=== PATIENT | female | born 1985 | race Caucasian/White ===

== ENCOUNTER 2018-11-04 18:54 | Emergency (ER) | payer OTHER | END 2018-11-04 22:35 | disposition home or self-care (01) | LOC: JERFT 18:54 ==

== ENCOUNTER 2019-08-11 07:23 | Emergency (ER) | payer OTHER ==
[2019-08-11 07:29] VITALS: BP 137/75; PULSE 96; TEMP 98.9; BMI 41.9
[2019-08-11] MEDS ORDERED: IBUPROFEN 600 MG TABLET (FP) PO ONE ×2 (07:41→07:52)
[2019-08-11] MEDS ORDERED: DEXAMETHASONE LIQUID 0.5 MG/5 ML PO ONE (07:41)
[2019-08-11] MEDS ORDERED: DEXAMETHASONE SOD PHOSPHATE 10 MG/1 ML VIAL ONE (07:51)
--- NOTE | 2019-08-11 08:59 | PDOC ---
History of Present Illness - General Chief Complaint: Sore Throat Stated Complaint: SORE THROAT,VOMITING,ABD PAIN Time Seen by Provider: 08/11/19 07:34 History Source: Patient Exam Limitations: No Limitations - History of Present Illness Initial Comments: 08/11/19 08:00 34-year-old female presents ED with sore throat and vomiting since Sunday night. Patient states is been taking Tylenol last dose being at 3 AM this morning. Patient denies recent travel, recent illness, or medical history. Patient denies smoking history. Is this a multiple visit Asthma Patient?: No Timing/Duration: reports: other Severity: reports: mild Associated Symptoms: reports: sore throat, other Past History - Travel Traveled outside of the country in the last 30 days: No Close contact w/someone who was outside of country & ill: No - Past Medical History Allergies/Adverse Reactions: Allergies Allergy/AdvReac Type Severity Reaction Status Date / Time No Known Allergies Allergy Verified 08/11/19 07:29 Home Medications: Ambulatory Orders Albuterol Sulfate Inhaler - [Ventolin HFA Inhaler -] 1 - 2 inh PO Q4H #1 inhaler 11/04/18 Azithromycin [Zithromax -] 250 mg PO UTDICT #6 tab 11/04/18 Guaifenesin Dm [Mucinex Dm -] 1 tab PO BID #60 tab.er.12h 11/04/18 COPD: No - Surgical History Abdominal Surgery: Yes (GASTRIC SLEEVE) - Psycho Social/Smoking Cessation Hx Smoking History: Never smoked Patient Lives Alone: No Lives with/in: spouse/SO Review of Systems - Review of Systems Able to Perform ROS?: Yes Constitutional: No: Symptoms Reported HEENTM: Yes: Throat Pain, Difficulty Swallowing Respiratory: No: Symptoms reported Cardiac (ROS): No: Symptoms Reported ABD/GI: Yes: Vomiting : No: Symptoms Reported Musculoskeletal: No: Symptoms Reported Integumentary: No: Symptoms Reported Neurological: No: Symptoms reported *Physical Exam - Vital Signs Last Vital Signs Temp Pulse Resp BP Pulse Ox 98.9 F 96 H 16 137/75 97 08/11/19 07:26 08/11/19 07:26 08/11/19 07:26 08/11/19 07:26 08/11/19 07:26 - Physical Exam General Appearance: Yes: Nourished, Appropriately Dressed. No: Apparent Distress HEENT: positive: TMs Normal, Pharyngeal Erythema. negative: Pale Conjunctivae Neck: positive: Normal Thyroid, Lymphadenopathy (R) (Upper cervical), Lymphadenopathy (L) (Upper cervical) Respiratory/Chest: positive: Lungs Clear, Normal Breath Sounds. negative: Respiratory Distress, Accessory Muscle Use Cardiovascular: positive: Regular Rhythm, Regular Rate. negative: Murmur Integumentary: positive: Normal Color, Warm, Moist Neurologic: positive: Motor Strength 5/5 (Ambulatory) ED Treatment Course - Medications Given in the ED: ED Medications Discontinued Medications Generic Name Dose Route Start Last Admin Trade Name Freq PRN Reason Stop Dose Admin Dexamethasone 10 mg 08/11/19 07:41 08/11/19 07:53 Decadron Liquid - PO 08/11/19 07:42 10 mg ONCE ONE Administration Ibuprofen 600 mg 08/11/19 07:41 08/11/19 07:57 Motrin - PO 08/11/19 07:42 600 mg ONCE ONE Administration Medical Decision Making - Medical Decision Making 08/11/19 08:03 Chief complaint: Sore throat and vomiting went trying to bring up sputum. positive chills no fever. Exam: Erythema to the posterior soft palate with superficial upper cervical adenopathy Plan: Decadron, Motrin influenza and strep sent 08/11/19 09:04 Laboratory Tests 08/11/19 08/11/19 07:51 07:51 Influenza A (Rapid) Negative Influenza B (Rapid) Negative Group A Strep Rapid Positive Patient states feeling much better. Will discharge home with azithromycin and recommendations to take Motrin for discomfort Discharge - Discharge Information Problems reviewed: Yes Clinical Impression/Diagnosis: Strep throat Condition: Improved Disposition: HOME - Follow up/Referral - Patient Discharge Instructions Patient Printed Discharge Instructions: DI for Strep Throat Additional Instructions: Please take antibiotics starting today. Take Motrin 600 mg as needed every 8 hours for fever and discomfort. Please not do not share any utensils or 2 pressures with anyone as you are contagious for the next 24 hours. - Post Discharge Activity Work/Back to School Note: Back to Work
== END 2019-08-11 09:00 | disposition home or self-care (01) ==
LOC: JER 07:23
DX: J02.0 Streptococcal pharyngitis (principal); B95.0 Streptococcus, group A, as the cause of diseases classified elsewhere; Z98.84 Bariatric surgery status
CPT/HCPCS: 87804; 87880; 99281-25

== ENCOUNTER 2019-12-15 13:59 | Emergency (ER) | payer OTHER ==
--- NOTE | 2019-12-15 14:13 | PDOC ---
Rapid Medical Evaluation Time Seen by Provider: 12/15/19 14:00 Medical Evaluation: Allergies Allergy/AdvReac Type Severity Reaction Status Date / Time No Known Allergies Allergy Verified 08/11/19 07:29 12/15/19 14:00 Pt c/o: nasal congestion, sore throat, headache, cough, fatigue x 2 days Pt on brief exam: vss, frontal sinus tenderness, lcta Pt ordered for: none Pt to proceed to the ED
[2019-12-15 14:30] VITALS: BP 136/77; PULSE 86; TEMP 98.7; BMI 41.9
[2019-12-15] MEDS ORDERED: ACETAMINOPHEN 325 MG TABLET (FP) PO ONE (14:37)
[2019-12-15] MEDS ORDERED: ONDANSETRON 4 MG TABLET PO ONE ×2 (14:37→14:41)
[2019-12-15] MEDS ORDERED: ACETAMINOPHEN 325 MG TABLET (FP) ONE (14:40)
--- NOTE | 2019-12-15 14:44 | PDOC ---
History of Present Illness - General Chief Complaint: Nausea/Vomiting Stated Complaint: COLD SYMPTOMS Time Seen by Provider: 12/15/19 14:00 History Source: Patient - History of Present Illness Timing/Duration: reports: other Quality: reports: mild Past History - Past Medical History Allergies/Adverse Reactions: Allergies Allergy/AdvReac Type Severity Reaction Status Date / Time No Known Allergies Allergy Verified 12/15/19 14:30 Home Medications: Ambulatory Orders Albuterol Sulfate Inhaler - [Ventolin HFA Inhaler -] 1 - 2 inh PO Q4H #1 inhaler 11/04/18 Azithromycin [Zithromax -] 250 mg PO UTDICT #6 tab 11/04/18 Guaifenesin Dm [Mucinex Dm -] 1 tab PO BID #60 tab.er.12h 11/04/18 Azithromycin [Zithromax 250mg Tablets -] 250 mg PO UTDICT #6 tab 08/11/19 Acetaminophen [Tylenol] 650 mg PO Q6H #30 capsule 12/15/19 Ondansetron HCl [Zofran] 4 mg PO Q8H #6 tablet 12/15/19 COPD: No - Surgical History Abdominal Surgery: Yes (GASTRIC SLEEVE) - Immunization History Immunization Up to Date: Yes - Psycho Social/Smoking Cessation Hx Smoking History: Never smoked Have you smoked in the past 12 months: No Information on smoking cessation initiated: No Hx Alcohol Use: No Drug/Substance Use Hx: No Review of Systems - Review of Systems Constitutional: Yes: Chills. No: Fever HEENTM: No: Ear Pain, Throat Pain Respiratory: No: Cough, Shortness of Breath, Wheezing Cardiac (ROS): No: Chest Pain ABD/GI: Yes: Diarrhea, Nausea, Vomiting. No: Abdominal cramping : No: Dysuria *Physical Exam - Vital Signs Last Vital Signs Temp Pulse Resp BP Pulse Ox 98.7 F 86 18 136/77 100 12/15/19 14:26 12/15/19 14:26 12/15/19 14:26 12/15/19 14:26 12/15/19 14:26 - Physical Exam General Appearance: Yes: Appropriately Dressed. No: Apparent Distress HEENT: positive: Normal ENT Inspection, Normal Voice, TMs Normal, Pharynx Normal. negative: Scleral Icterus (R), Scleral Icterus (L) Neck: positive: Supple. negative: Lymphadenopathy (R), Lymphadenopathy (L) Respiratory/Chest: positive: Lungs Clear, Normal Breath Sounds. negative: Respiratory Distress Cardiovascular: positive: Regular Rate, S1, S2 Gastrointestinal/Abdominal: positive: Soft. negative: Tender Musculoskeletal: negative: CVA Tenderness Integumentary: positive: Dry, Warm Neurologic: positive: Fully Oriented, Alert, Normal Mood/Affect Medical Decision Making - Medical Decision Making 12/15/19 14:38 34-year-old female here with nausea, vomiting, diarrhea, body aches and chills x 3-4 days. States she had 1-2 episodes of nausea vomiting and about 4-5 episodes of non-bloody watery stools. No abdominal pain, shortness of breath or documented fever. No recent travel, sick contacts or antibiotic use see exam Viral syndrome Well ghassan and stable w/ unremarkable exam Ua/preg wnl Symptomatic tx in ED -dc w/ supportive tx -to return as needed 12/15/19 15:51 UA unremarkable. Upreg negative. Patient reports feeling better with meds and able to tolerate p.o. Dc with supportive treatment and to stay at home until asymptomatic for 24 hours Discharge - Discharge Information Problems reviewed: Yes Clinical Impression/Diagnosis: Viral syndrome Condition: Improved Disposition: HOME - Additional Discharge Information Prescriptions: Acetaminophen [Tylenol] 650 mg PO Q6H #30 capsule Ondansetron HCl [Zofran] 4 mg PO Q8H #6 tablet - Follow up/Referral - Patient Discharge Instructions Patient Printed Discharge Instructions: DI for Viral Syndrome - Post Discharge Activity Work/Back to School Note: Back to Work
[2019-12-15 15:44] LABS: EPI CELLS 12 /HPF (0-5/HPF); HYALINE CASTS 1 /lpf (0-8); URINE APPEARANCE CLEAR; URINE BACTERIA 145 /hpf (NEGATIVE); URINE BILIRUBIN NEGATIVE (NEGATIVE); URINE COLOR YELLOW; URINE GLUCOSE (UA) NEGATIVE (NEGATIVE); URINE KETONE TRACE (NEGATIVE); URINE LEUK ESTERASE TRACE (NEGATIVE); URINE NITRITE NEGATIVE (NEGATIVE); URINE PROTEIN NEGATIVE (NEGATIVE); URINE WBC 17 /hpf (0-5)
[2019-12-15 15:59] LABS: HCG,QUALITATIVE URINE Negative
[2019-12-15 17:52] LABS: URINE RBC 15 /hpf (0-4)
== END 2019-12-15 16:07 | disposition home or self-care (01) ==
LOC: JERFT 13:59
DX: B34.9 Viral infection, unspecified (principal)
CPT/HCPCS: 81003; 84703; 99283-25